=== PATIENT | female | born 1960 | race Caucasian/White ===

== ENCOUNTER 2024-10-29 10:10 | Outpatient (AMB) | payer MEDICARE, SELFPAY ==
--- NOTE | 2024-10-29 10:15 | A.OFFVIS_ITS ---
Vital Signs 10/29/24 10:29 Height 5 ft 8 in Weight 179 lb BMI 27.2 BP 118/68 Blood Pressure Location Rt brachial Position Sitting Pulse 81 Pulse Oximetry (%) 97 Oxygen Delivery Method Room Air Intake Visit Reasons: wheezing & chest tightness Claims Vice President Required: No Passenger Car Cleaning Supervisor: Passenger Car Cleaning Supervisor offered & declined Accompanied by: Self / Same As Patient Allergies aspirin Allergy (Verified 10/29/24 10:29) asthma sx levofloxacin (From Levaquin) Allergy (Verified 10/29/24 10:29) rash Sulfa (Sulfonamide Antibiotics) Allergy (Verified 10/29/24 10:29) hives sulfamethoxazole (From Bactrim) Allergy (Verified 10/29/24 10:29) hives trimethoprim (From Bactrim) Allergy (Verified 10/29/24 10:29) hives Medication List - Last Reconciled 10/29/24 by Analilia Gill LPN albuterol sulfate 90 mcg/actuation (Ventolin HFA) 2 puffs inhalation Q6H PRN budesonide-formoterol 160-4.5 mcg/actuation (Symbicort) 2 puffs inhalation BID montelukast 10 mg PO DAILY HPI HPI wheezing & chest tightness: Details: Jud is a pleasant 64-year-old female, never smoker, with underlying asthma. She was referred by PCP for pulmonary evaluation. She has had asthma since childhood, but in the last 2-3 years, she has noticed changes in her symptoms. Previously, her asthma was triggered by allergens, leading to gradual wheezing and difficulty breathing. Recently, she experiences sudden episodes of dyspnea without the gradual onset she was accustomed to. These episodes are particularly concerning during physical exertion, such as climbing hills, where she feels a restriction in her breathing. She is currently using Symbicort intermittently, often forgetting to take it daily, and uses it primarily when symptomatic. She has a nebulizer at home but uses it rarely, typically during severe respiratory infections. The patient has a history of allergic rhinitis, with known allergies to various environmental factors, including cats, although she has not expe rienced significant asthma exacerbations due to her cat in recent years. Previously under the care of ENT and received allergen immunotherapy 20+ years ago. She has not had recent allergy testing or pulmonary function tests. She reports a history of sinusitis, currently being treated with Augmentin, and has not experienced increased respiratory symptoms during this infection. She has a history of recurrent bronchitis, though not in the past few years. She reports brother with allergies, otherwise no pertinent family history. She endorses second hand smoke exposure as a child. She denies any o ccupational/environmental exposures. [facility], [facility] Social History (Updated 10/29/24 @ 10:21 by Analilia Gill LPN) Patient Tobacco Use Status: Never used Tobacco Review of Systems Const Denies chills, Denies excessive sweating, Denies fever(s), Denies headache(s) and Denies night sweats Eyes Denies dry eyes, Denies irritation and Denies itchy eyes ENT Reports Normal hearing present, Denies headache(s), Denies nasal congestion, Denies nasal discharge, Denies post nasal drip and Denies sore throat Card Denies chest pain, Denies chest pain at rest, Denies chest pain with activity, Denies claudication, Denies leg edema, Denies orthopnea and Denies paroxysmal nocturnal dyspnea Resp Denies chest congestion, Denies cough, Denies excessive phlegm production, Denies pain on inspiration, Denies pain with cough, Denies stridor and Denies wheezing Musc Denies myalgias Neuro Reports Normal hearing present and Denies headache(s) Endo Denies excessive sweating Marcelino/Lymph Denies lymphadenopathy Aller/Immun Denies itchy eyes, Denies seasonal rhinorrhea and Denies wheezing Physical Exam Vital Signs: Last Vital Signs Pulse 81 10/29/24 10:29 BP 118/68 10/29/24 10:29 Pulse Ox 97 10/29/24 10:29 Oxygen Delivery Method Room Air 10/29/24 10:29 BMI result Body Mass Index 27.2 Const General: cooperative, healthy appearing, comfortable, no acute distress, well developed and alert Orientation/consciousness: patient oriented x3 Limitations: no limitations HEENT Head: Yes normal to inspection, Yes normocephalic and Yes atraumatic Ears: hearing grossly normal bilaterally and external ears normal Eyes General: appearance normal, both eyes and all related structures Eyelids: Yes eyelids normal Sclerae: sclerae normal EOM: EOMs intact bilaterally Neck Neck: Yes normal visual inspection and Yes no lymphadenopathy Lymphatic: no lymphadenopathy noted Chest Chest palpation & inspection: normal inspection of the chest Resp Effort & Inspection: normal respiratory effort, able to speak in complete sentences, no audible wheezes, no cough, no stridor, not tachypneic, no tripod positioning and no use of accessory muscles Auscultation: clear to auscultation bilaterally Cardio Jugular venous distension: no JVD Rate: regular rate Rhythm: regular rhythm Skin Other: warm, dry General skin exam: no rashes or lesions noted Neuro General: patient oriented x3 Cranial nerves: Yes Normal hearing present Cognition (Neuro): normal cognition Gait exam (Neuro): Normal gait present Extrem General: Yes normal to inspection, Yes capillary refill normal, Yes no clubbing, cyanosis or edema and Yes no pedal edema Psych Appearance: grossly normal and well kempt Speech and movement: Normal speech and movement present and Clear speech present Affect: normal affect Attitude: cooperative Thought process: Normal thought process present Thought content: Normal thought content present Insight: Good insight present (Psych) Judgement: Good judgement present (Psych) Assessment & Plan Assessment & Plan (1) Asthma: Code(s): J45.909 - Unspecified asthma, uncomplicated Category: Medical (2) Environmental allergies: Code(s): Z91.09 - Other allergy status, other than to drugs and biological substances Category: Medical Plan Patient with likely suboptimal control of asthma using Symbicort PRN. Will adjust to a lower dose, with instructions to use it consistently twice daily to manage her asthma symptoms effectively. The patient is advised to monitor her symptoms over the next four weeks to assess the effectiveness of the treatment. The patient will undergo a pulmonary function test to evaluate her lung function and response to bronchodilators. She will also have updated allergy testing to identify any new or worsening allergies that may be contributing to her symptoms. All questions were answered and patient is in agreement of plan. Will follow up in 6-8 weeks or sooner if needed. Orders: Orders PFT pulmonary function test Today J45.909 - Unspecified asthma, uncomplicated Resp Allergy Profile Region I Today Z91.09 - Other allergy status, other than to drugs and biological substances Immunoglobulin E Today Z91.09 - Other allergy status, other than to drugs and biological substances Medications: New budesonide-formoterol 80-4.5 mcg/actuation (Breyna) 1 inh inhalation BID 10.2 grams 3RF Coding Level of Care Code New Pt Level 4 (47849) Diagnoses Asthma J45.909 Environmental allergies Z91.09
[2024-10-29 10:29] VITALS: BP 118/68; PULSE 81; O2SAT 97; BMI 27.2
== END 2024-10-29 10:55 | disposition home or self-care (01) ==
LOC: HO.HPSW 10:11
PROVIDERS: PCP Internal Medicine; Referring Provider Internal Medicine; Visit Provider Nurse Practitioner Family
DX: J45.909 Unspecified asthma, uncomplicated (principal); Z91.09 Other allergy status, other than to drugs and biological substances
CPT/HCPCS: 99204

== ENCOUNTER → 2024-10-29 10:10 | Outpatient (BNVA) | payer MEDICARE, SELFPAY | PROVIDERS: PCP Internal Medicine; Referring Provider Internal Medicine; Visit Provider Nurse Practitioner Family | DX: J45.909 Unspecified asthma, uncomplicated (principal); Z91.09 Other allergy status, other than to drugs and biological substances | CPT/HCPCS: 99202 ==

== ENCOUNTER 2024-10-29 11:36 | Outpatient (REF) | payer MEDICARE, SELFPAY ==
[2024-11-01 20:57] LABS: Class Alternaria alternata 2; Class Aspergillus fumigatus 2; Class Bermuda Grass 0; Class Birch 0; Class Cat Dander 2; Class Cladosporium herbarum 0; Class Cockroach 0; Class Common Ragweed 0; Class Cottonwood 0; Class Derm. pterony 0; Class Dermatophagoides farinae 0; Class Dog Dander 0/1; Class Elm 0; Class Maple Box Elder 0; Class Mountain Cedar 0; Class Mouse Urine Protein 0; Class Mugwort 0; Class Oak 0; Class Penicillium crysogenum 2; Class Rough Pigweed 0; Class Sheep Sorrel 0; Class Sycamore 0; Class Timothy Grass 0; Class Walnut Tree 0; Class White Ash 0; Class White Mulberry 0; D002 - IgE D farinae <0.10 kU/L; E001 - IgE Cat Dander 1.07 kU/L; E005 - IgE Dog Dander 0.15 kU/L; G006 - IgE Timothy Grass <0.10 kU/L; I006-IgE Cockroach, German <0.10 kU/L; M002 - IgE Cladosporium herbar <0.10 kU/L; M003 - IgE Aspergillus fumigat 2.78 kU/L; M006 - IgE Alternaria alternat 1.39 kU/L; T001 IgE Maple/Box Elder <0.10 kU/L; T006 - IgE Cedar, Mountain <0.10 kU/L; T007 - IgE Oak, White <0.10 kU/L; T008 IgE Elm, American <0.10 kU/L; T010 - IgE Walnut <0.10 kU/L; T011 - IgE Maple Leaf Sycamore <0.10 kU/L; T014 - IgE Cottonwood <0.10 kU/L; T015 - IgE Ash, White <0.10 kU/L; T070 - IgE White Mulberry <0.10 kU/L; W001 - IgE Ragweed, Short <0.10 kU/L; W006 - IgE Mugwort <0.10 kU/L; W014 IgE Pigweed, Common <0.10 kU/L; W018 IgE Sheep Sorrel <0.10 kU/L
== END 2024-10-29 11:37 | disposition home or self-care (01) ==
LOC: HO.WFDLDS 11:36
PROVIDERS: Visit Provider Nurse Practitioner Family
DX: Z91.09 Other allergy status, other than to drugs and biological substances (principal)
CPT/HCPCS: 36415; 82785; 86003

== ENCOUNTER 2025-01-11 07:32 | Outpatient (REF) | payer MEDICARE, SELFPAY ==
--- NOTE | ~2025-01-11 | XR_ITS ---
EXAMINATION: XR CHEST 2 VIEWS HISTORY: R06.00 - Dyspnea, unspecified COMPARISON: There are no prior studies available for comparison. FINDINGS: PA and lateral views of the chest are submitted. The lungs are hyperinflated, consistent with COPD. There is scarring at the right lung base. The lungs are otherwise clear. There is no pleural effusion, pneumothorax, or pulmonary vascular congestion. The heart is normal in size. There is mild degenerative disc disease of the spine. XR/XR chest 2V IMPRESSION: COPD. Right basilar scarring. Electronically signed by: Pawel Chao MD 01/11/2025 09:05 AM EDT
--- NOTE | 2025-01-11 07:38 | PFT_ITS ---
Indication: Asthma Spirometry FEV1 to FVC 65%; FEV1 1.91 L; FVC 2.94 L. There is a significant response to bronchodilators noted. Lung Volumes Total lung capacity 92% predicted; expiratory reserve volume 43% predicted Diffusion Capacity DLCO 78% predicted Comparisons None Interpretation There is an obstructive ventilatory defect consistent with moderate COPD. The patient does have a significant response to bronchodilators noted. Lung volumes are normal except for decrease in the expiratory reserve volume secondary to an elevated BMI. The patient does have a mild diffusion impairment. Clinical correlation warranted. MTDD
[2025-01-11 08:48] VITALS: PULSE 68; O2SAT 98
== END 2025-01-11 07:33 | disposition home or self-care (01) ==
LOC: HO.RESP 07:32
PROVIDERS: PCP Internal Medicine; Visit Provider Nurse Practitioner Family
DX: J45.909 Unspecified asthma, uncomplicated (principal); R06.00 Dyspnea, unspecified
CPT/HCPCS: 71046; 94010; 94640; 94727; 94729

== ENCOUNTER → 2025-01-11 07:38 | Outpatient (BNV) | payer MEDICARE, SELFPAY | PROVIDERS: PCP Internal Medicine; Visit Provider Hospitalist | DX: J98.4 Other disorders of lung (principal) | CPT/HCPCS: 94060; 94727; 94729 ==

== ENCOUNTER → 2025-01-11 08:46 | Outpatient (BNV) | payer MEDICARE, SELFPAY | PROVIDERS: PCP Internal Medicine; Visit Provider Radiology Diagnostic Radiology | DX: J44.9 Chronic obstructive pulmonary disease, unspecified (principal); J98.4 Other disorders of lung | CPT/HCPCS: 71046 ==

== ENCOUNTER 2025-01-25 10:48 | Outpatient (AMB) | payer MEDICARE, SELFPAY ==
[2025-01-25 10:51] VITALS: BP 130/74; PULSE 66; O2SAT 99; BMI 27.1
--- NOTE | 2025-01-25 10:51 | A.OFFVIS_ITS ---
Vital Signs 01/25/25 10:51 Height 5 ft 8 in Weight 178 lb 4 oz BMI 27.1 BP 130/74 Blood Pressure Location Rt brachial Position Sitting Pulse 66 Pulse Source Pulse Oximeter Pulse Oximetry (%) 99 Oxygen Delivery Method Room Air Intake Visit Reasons: wheezing chest tightness Allergies aspirin Allergy (Verified 01/25/25 10:54) asthma sx levofloxacin (From Levaquin) Allergy (Verified 01/25/25 10:54) rash Sulfa (Sulfonamide Antibiotics) Allergy (Verified 01/25/25 10:54) hives sulfamethoxazole (From Bactrim) Allergy (Verified 01/25/25 10:54) hives trimethoprim (From Bactrim) Allergy (Verified 01/25/25 10:54) hives HPI HPI wheezing chest tightness: Details: Jud is a pleasant 64-year-old female, never smoker, with underlying childhood asthma. She continues to report experiencing chest tightness and dyspnea upon exertion, which is relieved by albuterol use. Her symptoms have been persistent, however she has been using Breyna inconsistently, often forgetting the nighttime dose. Today she presents to review CXR, PFT and RAST. She denies any visits to urgent care or hospitalizations related to respiratory distress since the last visit. [facility] Social History (Reviewed 01/25/25 @ 10:54 by Bailey Andino [facility]) Patient Tobacco Use Status: Never used Tobacco Review of Systems Const Denies chills, Denies excessive sweating, Denies fever(s), Denies headache(s) and Denies night sweats Eyes Denies dry eyes, Denies irritation and Denies itchy eyes ENT Reports Normal hearing present, Denies headache(s), Denies nasal congestion, Denies nasal discharge, Denies post nasal drip and Denies sore throat Card Denies chest pain, Denies chest pain at rest, Denies chest pain with activity, Denies claudication, Denies leg edema, Reports dyspnea on exertion, Denies orthopnea and Denies paroxysmal nocturnal dyspnea Resp Denies change in phlegm color, Denies chest congestion, Denies cough, Denies hemoptysis, Denies excessive phlegm production, Denies pain on inspiration, Denies pain with cough, Reports dyspnea on exertion, Denies stridor and Denies wheezing Musc Denies myalgias Neuro Reports Normal hearing present and Denies headache(s) Endo Denies excessive sweating Marcelino/Lymph Denies lymphadenopathy Aller/Immun Denies itchy eyes, Denies seasonal rhinorrhea and Denies wheezing Physical Exam Vital Signs: Last Vital Signs Pulse 66 01/25/25 10:51 BP 130/74 01/25/25 10:51 Pulse Ox 99 01/25/25 10:51 Oxygen Delivery Method Room Air 01/25/25 10:51 BMI result Body Mass Index 27.1 Const General: cooperative, healthy appearing, comfortable, no acute distress, well developed and alert Orientation/consciousness: patient oriented x3 Limitations: no limitations HEENT Head: Yes normal to inspection, Yes normocephalic and Yes atraumatic Ears: hearing grossly normal bilaterally and external ears normal Eyes General: appearance normal, both eyes and all related structures Eyelids: Yes eyelids normal Sclerae: sclerae normal EOM: EOMs intact bilaterally Neck Neck: Yes normal visual inspection and Yes no lymphadenopathy Lymphatic: no lymphadenopathy noted Chest Chest palpation & inspection: normal inspection of the chest Resp Effort & Inspection: normal respiratory effort, able to speak in complete sen tences, no audible wheezes, no cough, no stridor, not tachypneic, no tripod positioning and no use of accessory muscles Auscultation: clear to auscultation bilaterally Cardio Jugular venous distension: no JVD Rate: regular rate Rhythm: regular rhythm Skin Other: warm, dry General skin exam: no rashes or lesions noted Neuro General: patient oriented x3 Cranial nerves: Yes Normal hearing present Cognition (Neuro): normal cognition Gait exam (Neuro): Normal gait present Extrem General: Yes normal to inspection, Yes capillary refill normal, Yes no clubbing, cyanosis or edema and Yes no pedal edema Psych Appearance: grossly normal and well kempt Speech and movement: Normal speech and movement present and Clear speech present Affect: normal affect Attitude: cooperative Thought process: Normal thought process present Thought content: Normal thought content present Insight: Good insight present (Psych) Judgement: Good judgement present (Psych) Results Reviewed Results Reviewed: [address] [address] XRay Report Signed Patient: Jud Santos MR#: [id number] : 1960 Acct:[id number] Age/Sex: 64 / F ADM Date: 01/11/25 Loc: HO.RESP Attending Dr: Casie Angela NP Ordering Physician: Casie Angela NP Date of Service: 01/11/25 Procedure(s): XR chest 2V Accession Number(s): [id number] cc: CÉSAR SALGADO MD; Casie Angela NP~ Reason for Exam: R06.00 - Dyspnea, unspecified EXAMINATION: XR CHEST 2 VIEWS HISTORY: R06.00 - Dyspnea, unspecified COMPARISON: There are no prior studies available for comparison. FINDINGS: PA and lateral views of the chest are submitted. The lungs are hyperinflated, consistent with COPD. There is scarring at the right lung base. The lungs are otherwise clear. There is no pleural effusion, pneumothorax, or pulmonary vascular congestion. The heart is normal in size. There is mild degenerative disc disease of the spine. XR/XR chest 2V IMPRESSION: COPD. Right basilar scarring. Electronically signed by: Pawel Chao MD 01/11/2025 09:05 AM EDT Dictated By: Pawel Chao MD Signed By: <Electronically signed by Pawel Chao MD in OV> 01/11/25 0905 DD/ 0853 TD/TT: 01/11/25 0855 Resource Paraprofessional: Assessment & Plan Assessment & Plan (1) Asthma-COPD overlap syndrome: Code(s): J44.89 - Other specified chronic obstructive pulmonary disease Category: Medical (2) Decreased diffusion capacity: Code(s): R94.2 - Abnormal results of pulmonary function studies Category: Medical (3) Abnormal chest xray: Code(s): R93.89 - Abnormal findings on diagnostic imaging of other specified body structures Category: Medical (4) Environmental allergies: Code(s): Z91.09 - Other allergy status, other than to drugs and biological substances Category: Medical Plan Reviewed PFT which revealed an obstructive ventilatory defect consistent with moderate COPD. The patient does have a significant response to bronchodilators noted. Lung volumes are normal except for decrease in the expiratory reserve volume secondary to an elevated BMI. The patient does have a mild diffusion impairment. RAST + to mold and cat. Discussed ways to minimize allergen exposures. CXR revealed hyperinflation consistent with COPD as well as possible scarring of RLL. Discussed with the patient the diagnosis of asthma-COPD overlap syndrome and the importance of consistent medication use, including Symbicort and albuterol. We reviewed the need for a chest CT to assess for underlying parenchymal conditions that would explain decrease in diffusion capacity and abnormalities found on CXR. All questions were answered and patient is in agreement of plan. Will follow up to review results or sooner if needed. Orders: Orders CT chest wo IV con Today R93.89 - Abnormal findings on diagnostic imaging of other specified body structures, R94.2 - Abnormal results of pulmonary function studies Medications: New albuterol sulfate 2.5 mg (3 mL) inhalation Q4-6H PRN 75 mL 0RF shortness of breath or wheezing Coding Level of Care Code Est Pt Level 4 (86360) Diagnoses Asthma-COPD overlap syndrome J44.89 Decreased diffusion capacity R94.2 Abnormal chest xray R93.89 Environmental allergies Z91.09
== END 2025-01-25 11:35 | disposition home or self-care (01) ==
LOC: HO.HPSW 10:49
PROVIDERS: PCP Internal Medicine; Visit Provider Nurse Practitioner Family
DX: J44.89 Other specified chronic obstructive pulmonary disease (principal); R94.2 Abnormal results of pulmonary function studies; R93.89 Abnormal findings on diagnostic imaging of other specified body structures; Z91.09 Other allergy status, other than to drugs and biological substances
CPT/HCPCS: 99214

== ENCOUNTER → 2025-01-25 10:48 | Outpatient (BNVA) | payer MEDICARE, SELFPAY | PROVIDERS: PCP Internal Medicine; Visit Provider Nurse Practitioner Family | DX: R06.2 Wheezing (principal); J44.89 Other specified chronic obstructive pulmonary disease; R94.2 Abnormal results of pulmonary function studies; R93.89 Abnormal findings on diagnostic imaging of other specified body structures; Z91.09 Other allergy status, other than to drugs and biological substances | CPT/HCPCS: 99212 ==

== ENCOUNTER 2025-03-12 07:31 | Outpatient (REF) | payer MEDICARE, SELFPAY ==
--- NOTE | ~2025-03-12 | CT_ITS ---
CLINICAL HISTORY: R94.2 - Abnormal results of pulmonary function studies Exam: CT chest without IV contrast Comparison: None provided Findings: No acute infiltrates, pleural effusion or pneumothorax. No emphysema or bronchiectasis. Scattered parenchymal scars bilateral lungs. Punctate pulmonary micronodule left lower lobe on series 5, image 83, most likely benign. Patent central airway. Heart size is normal. Nonaneurysmal aorta. Great vessels are normal in caliber. Mild atherosclerotic calcification of distal descending aorta. No pericardial effusion. No lymphadenopathy. Imaged lower neck, chest wall and upper abdomen are unremarkable. Mild degenerative changes of thoracic spine. Impression: No acute finding. No CT finding to account for abnormal pulmonary function test. This document has been electronically signed by: Miya De Jesus MD on 03/14/2025 11:12:50
== END 2025-03-12 07:32 | disposition home or self-care (01) ==
LOC: HO.CT 07:31
PROVIDERS: PCP Internal Medicine; Visit Provider Nurse Practitioner Family
DX: R94.2 Abnormal results of pulmonary function studies (principal); R93.89 Abnormal findings on diagnostic imaging of other specified body structures
CPT/HCPCS: 71250

== ENCOUNTER → 2025-03-12 07:34 | Outpatient (BNV) | payer MEDICARE, SELFPAY | PROVIDERS: PCP Internal Medicine; Visit Provider Radiology Diagnostic Radiology | DX: R94.2 Abnormal results of pulmonary function studies (principal) | CPT/HCPCS: 71250 ==

== ENCOUNTER 2025-03-29 12:54 | Outpatient (AMB) | payer MEDICARE, SELFPAY ==
--- NOTE | 2025-03-29 12:57 | MHC.OFFVIS ---
Vital Signs 03/29/25 12:58 Height 5 ft 8 in Weight 180 lb 2 oz BMI 27.4 BP 110/64 Blood Pressure Location Rt brachial Position Sitting Pulse 63 Pulse Source Pulse Oximeter Pulse Oximetry (%) 99 Oxygen Delivery Method Room Air Intake Visit Reasons: wheezing chest tightness/CT FU Allergies aspirin Allergy (Verified 03/29/25 13:01) asthma sx levofloxacin (From Levaquin) Allergy (Verified 03/29/25 13:01) rash Sulfa (Sulfonamide Antibiotics) Allergy (Verified 03/29/25 13:01) hives sulfamethoxazole (From Bactrim) Allergy (Verified 03/29/25 13:01) hives trimethoprim (From Bactrim) Allergy (Verified 03/29/25 13:01) hives HPI Comments Details: Jud is a pleasant 64-year-old female, never smoker, with underlying childhood asthma/asthma COPD overlap syndrome. A recent pulmonary function test in December, while results reflect a diagnosis of moderate COPD, there was significant response to bronchodilators with a 17-22% improvement, which is more indicative of asthma. The patient's primary symptoms include shortness of breath on exertion and a dry cough. She reports voice hoarseness, which she attributes as a side effect of Breyna. Recent allergy testing revealed elevated IgE to Aspergillus fumigatus, Alternaria alternata and penicillium chrysogenum as well as cat and dog. The patient has a history of recurrent bronchitis but has not had recent urgent care visits or hospitalizations for respiratory issues. A recent chest CT scan showed scattered pulmonary scarring, which was a new finding for her, as well as micronodules, with one measuring 1 mm. The scan showed no evidence of emphysema or aspergilloma. Incidental findings included mild calcifications within the aorta and degenerative changes in the thoracic spine. Her current medications include a Breyna inhaler 80 mcg twice a day, montelukast, and an albuterol rescue inhaler. She has a nebulizer at home which she only uses when she is sick. Pulmonology History - History of asthma since childhood. - History of recurrent bronchitis. - Current symptoms include exertional dyspnea and a dry cough. - Recent chest CT revealed scattered pulmonary scarring and micronodules. - Allergy testing revealed a significant mold allergy. Results - Chest CT: Findings include scattered pulmonary scarring, micronodules with one measuring 1 mm in the left lower lobe, mild aortic calcifications, and degenerative changes of the thoracic spine. - There were no acute findings, no emphysema, and no aspergilloma. - Pulmonary Function Test (December): Showed a significant response to bronchodilators, with a 17-22% improvement, indicating an asthma component. - Allergy Testing: Positive for a high level of mold allergy. [facility] Social History Patient Tobacco Use Status: Never used Tobacco Review of Systems Narrative Const Denies chills, Denies excessive sweating, Denies fever(s), Denies headache(s) and Denies night sweats Eyes Denies dry eyes, Denies irritation and Denies itchy eyes ENT Reports Normal hearing present, Denies headache(s), Denies nasal congestion, Denies nasal discharge, Denies post nasal drip and Denies sore throat Card Denies chest pain, Denies chest pain at rest, Denies chest pain with activity, Denies claudication, Denies leg edema, Reports dyspnea on exertion, Denies orthopnea and Denies paroxysmal nocturnal dyspnea Resp Denies change in phlegm color, Denies chest congestion, Reports cough, Denies hemoptysis, Denies excessive phlegm production, Denies pain on inspiration, Denies pain with cough, Reports dyspnea on exertion, Denies stridor and Denies wheezing Musc Denies myalgias Neuro Reports Normal hearing present and Denies headache(s) Endo Denies excessive sweating Marcelino/Lymph Denies lymphadenopathy Aller/Immun Denies itchy eyes, Denies seasonal rhinorrhea and Denies wheezing Physical Exam Exam Exam: Vital Signs: Last Vital Signs Pulse 63 03/29/25 12:58 BP 110/64 03/29/25 12:58 Pulse Ox 99 03/29/25 12:58 Oxygen Delivery Method Room Air 03/29/25 12:58 BMI result Body Mass Index 27.4 Const General: cooperative, healthy appearing, comfortable, no acute distress, well developed and alert Orientation/consciousness: patient oriented x3 Limitations: no limitations HEENT Head: Yes normal to inspection, Yes normocephalic and Yes atraumatic Ears: hearing grossly normal bilaterally and external ears normal Eyes General: appearance normal, both eyes and all related structures Eyelids: Yes eyelids normal Sclerae: sclerae normal EOM: EOMs intact bilaterally Neck Neck: Yes normal visual inspection and Yes no lymphadenopathy Lymphatic: no lymphadenopathy noted Chest Chest palpation & inspection: normal inspection of the chest Resp Effort & Inspection: normal respiratory effort, able to speak in complete sentences, no audible wheezes, no cough, no stridor, not tachypneic, no tripod positioning and no use of accessory muscles Auscultation: clear to auscultation bilaterally Cardio Jugular venous distension: no JVD Rate: regular rate Rhythm: regular rhythm Skin Other: warm, dry General skin exam: no rashes or lesions noted Neuro General: patient oriented x3 Cranial nerves: Yes Normal hearing present Cognition (Neuro): normal cognition Gait exam (Neuro): Normal gait present Extrem General: Yes normal to inspection, Yes capillary refill normal, Yes no clubbing, cyanosis or edema and Yes no pedal edema Psych Appearance: grossly normal and well kempt Speech and movement: Normal speech and movement present and Clear speech present Affect: normal affect Attitude: cooperative Thought process: Normal thought process present Thought content: Normal thought content present Insight: Good insight present (Psych) Judgement: Good judgement present (Psych) Results Reviewed Results Reviewed: [place] [address] CT Scan Report Signed Patient: Jud Santos MR#: [id number] : 1960 Acct:[id number] Age/Sex: 64 / F ADM Date: 03/12/25 Loc: .CT Attending Dr: Casie Angela NP Ordering Physician: Casie Angela NP Date of Service: 03/12/25 Procedure(s): CT chest wo IV con Accession Number(s): [id number] cc: CÉSAR SALGADO MD; Casie Angela NP~ Report Number: [id number]: Total DLP = 153.00 mGy-cm Reason for Exam: R94.2 - Abnormal results of pulmonary function studies CLINICAL HISTORY: R94.2 - Abnormal results of pulmonary function studies Exam: CT chest without IV contrast Comparison: None provided Findings: No acute infiltrates, pleural effusion or pneumothorax. No emphysema or bronchiectasis. Scattered parenchymal scars bilateral lungs. Punctate pulmonary micronodule left lower lobe on series 5, image 83, most likely benign. Patent central airway. Heart size is normal. Nonaneurysmal aorta. Great vessels are normal in caliber. Mild atherosclerotic calcification of distal descending aorta. No pericardial effusion. No lymphadenopathy. Imaged lower neck, chest wall and upper abdomen are unremarkable. Mild degenerative changes of thoracic spine. Impression: No acute finding. No CT finding to account for abnormal pulmonary function test. This document has been electronically signed by: Miya De Jesus MD on 03/14/2025 11:12:50 Dictated By: Miya De Jesus MD Signed By: <Electronically signed by Miya De Jesus MD in OV> 03/14/25 1114 DD/ 111 TD/TT: 03/14/25 111 Logistics Engineer: Assessment & Plan Assessment & Plan (1) Asthma-COPD overlap syndrome: Code(s): J44.89 - Other specified chronic obstructive pulmonary disease Category: Medical (2) Decreased diffusion capacity: Code(s): R94.2 - Abnormal results of pulmonary function studies Category: Medical (3) Environmental allergies: Code(s): Z91.09 - Other allergy status, other than to drugs and biological substances Category: Medical (4) Pulmonary nodule: Code(s): R91.1 - Solitary pulmonary nodule Category: Medical Plan The patient's history of childhood asthma and significant bronchodilator response (17-22%) on recent PFTs strongly support an asthma diagnosis over COPD, especially with no emphysema on CT. Her symptoms of exertional dyspnea are likely due to underlying airway inflammation. The plan is to increase her maintenance inhaler dose to better control symptoms. She should continue montelukast, for which a 90-day prescription will be sent. A new prescription for albuterol will also be sent, with instructions to use it 15-20 minutes before activity to prevent exercise-induced symptoms. To address inhaler-induced hoarseness, gargling with salt water after use was recommended. A repeat PFT is planned for next December to monitor lung function. If symptoms remain uncontrolled, future options include a course of prednisone or injectable biologics. The patient has a high mold allergy score, which in combination with her asthma, places her at risk for Allergic Bronchopulmonary Aspergillosis (ABPA), although she does not currently present with typical ABPA symptoms. A referral will be placed to an precipitation equipment tender, for further evaluation, consideration for allergy shots. Environmental control measures were discussed, including using HEPA air purifiers, cleaning air ducts, keeping home humidity below 50%, using dust mite covers, and keeping the pet cat out of the bedroom. The recent chest CT showed scattered scarring and micronodules, which are not clinically significant at their current size and are likely sequelae of prior infection. The plan is to monitor these findings with a follow-up chest CT scan in one year to ensure stability. All questions were answered and patient is in agreement of plan. Will follow up in 8-10 weeks or sooner if needed. Patient Instructions - We will be increasing the dose of your daily maintenance inhaler (Breyna) to help better control your shortness of breath. - To help with the voice hoarseness from your inhaler, make sure to rinse your mouth, brush your teeth, and gargle with salt water after each use. - Use your albuterol rescue inhaler about 15-20 minutes before you exercise to prevent symptoms. - New prescriptions for montelukast (Singulair) and albuterol will be sent to your pharmacy. - We will make a referral for you to see an account installation specialist to discuss your mold allergy and possible allergy shots. - Continue with environmental controls at home, such as using an air purifier, keeping humidity low, and washing bedding in hot water. - Schedule a follow-up chest CT scan in one year to monitor the small spots on your lungs. - Schedule a repeat breathing test (pulmonary function test) for next December. - If you have trouble getting your medications covered by insurance in April, please call our office as we may need to send a different prescription. Patient was informed and verbally consented to the use of an ambient scribe for clinic note documentation during this visit. Orders: Orders PFT pulmonary function test 9 Months J44.89 - Other specified chronic obstructive pulmonary disease CT chest wo IV con 11 Months R91.1 - Solitary pulmonary nodule Referrals Allergy & Immunology Referral Z91.09 - Other allergy status, other than to drugs and biological substances Medications: New budesonide-formoterol 160-4.5 mcg/actuation (Symbicort) 2 puffs inhalation Q12H 10.2 grams 3RF montelukast 10 mg PO DAILY 90 tabs 3RF albuterol sulfate 90 mcg/actuation (Ventolin HFA) 2 puffs inhalation Q6H PRN 1 ea 3RF wheezing Discontinued budesonide-formoterol 80-4.5 mcg/actuation Discontinued Reason: Patient Completed Course 1 inh inhalation BID 10.2 grams 3RF Coding Level of Care Code Est Pt Level 4 (98707) Add On Problem Visit Only Diagnoses Asthma-COPD overlap syndrome J44.89 Decreased diffusion capacity R94.2 Environmental allergies Z91.09 Pulmonary nodule R91.1
[2025-03-29 12:58] VITALS: BP 110/64; PULSE 63; O2SAT 99; BMI 27.4
--- OUTSIDE RECORDS SUMMARY | 2025-03-29 16:46 | XMS_ITS | Patient Health Record ---
Author Organization [facility] Address [address] [place] [address] Care Team Providers Care Cloth Desizing Range Tender Name Role Phone IMANI WAGNER MD Primary Care Provider Unavailable AB Theodore Unavailable [phone] Allergies Allergen (clinical drug ingredient) Drug/Non Drug Allergy documented on EMR Reaction Allergy Type Onset Date Status aspirin Aspirin Sever Asthma Drug Allergy Acti ve sulfamethoxazole / trimethoprim Bactrim rash Drug Allergy Active Reason For Referral No Information Medications Medication SIG (Take, Route, Frequency, Duration) Notes Start Date End Date Status Venlafaxine HCl 37.5 MG Tablet 1 tab(s) orally qd Active ESTROVEN 4 MG 1 TAB(S) QD *Please review f or potential replacement for e-prescription and drug interaction check* Active Singulair 10 MG Tablet 1 tab(s) orally once a day; Duration: 30 day(s) Active OCCUVITE ; Duration: QD *Please review f or potential replacement for e-prescription and drug interaction check* Active Vitamin D3 50 MG TABLET 1 TAB(S) ORALLY ONCE A DAY NAME ONLY Conversion from Multum Review and pick correct strength-formulatio n from Medispan options. If intended option is not shown, discontinue and re-order from Quick Search. 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[employer], [employer] asbestos exposure: no alcohol use: yes socially 2-3/fri drug use: no Hobbies/Exercise habits: Walking , Knitting and Reading Coffee/Tea/Soda: yes 3-4 Tea's Daily Occ Soda Marital Status experience no Living with smokers in household no Problems Problem Type SNOMED Code ICD Code Onset Dates Problem Status W/U Status Risk Notes Problem Menopausal state (576747772) Menopausal state (N95.1) Active confirmed Plan Of Treatment No Information Insurance Providers Payer Name Payer Address Payer Phone Subscriber Number Group Number Insured Name Patient Relationship to Insured Coverage Start Date Coverage End Date [facility] [address] [place], [place] [id number] YOKASTA LOPEZ Self - patient is the insured Medical (General) History Medical History History ICD Code Allergies Anemia Asthma Mononucleosis Pneumonia Polymyalga rheumatica - ster oids & methotrexate, just stopped in the Spring 2018 - Natasha Surgical History Surgery Date(Month/Year) Shoulder 2017 Sinus Surgery [id number]
== END 2025-03-29 13:44 | disposition home or self-care (01) ==
LOC: HO.HPSW 12:54
PROVIDERS: PCP Internal Medicine; Visit Provider Nurse Practitioner Family
DX: J44.89 Other specified chronic obstructive pulmonary disease (principal); R94.2 Abnormal results of pulmonary function studies; Z91.09 Other allergy status, other than to drugs and biological substances; R91.1 Solitary pulmonary nodule
CPT/HCPCS: 99214; G2211

== ENCOUNTER → 2025-03-29 12:54 | Outpatient (BNVA) | payer MEDICARE, SELFPAY | PROVIDERS: PCP Internal Medicine; Visit Provider Nurse Practitioner Family | DX: J44.89 Other specified chronic obstructive pulmonary disease (principal); R94.2 Abnormal results of pulmonary function studies; R91.1 Solitary pulmonary nodule; Z91.09 Other allergy status, other than to drugs and biological substances; Z79.899 Other long term (current) drug therapy | CPT/HCPCS: 99212 ==